=== PATIENT | female | born 1975 | race Caucasian/White ===

== ENCOUNTER 2017-05-24 10:43 | Emergency (ER) | payer SELFPAY ==
--- NOTE | 2017-05-24 11:13 | CPEKG ---
Heart Rate: 71 RR Interval: 845 P-R Interval: 188 QRSD Interval: 74 QT Interval: 364 QTC Interval: 396 P [place]: 45 QRS [place]: 4 T Wave [place]: 24 EKG Severity - NORMAL ECG - EKG Impression: SINUS RHYTHM Electronically Signed By: Stef Vasquez 24-May-2017 11:48:47
[2017-05-24] MEDS ORDERED: LIDOCAINE 2% VISCOUS 15 ML UDCUP PO ONE (11:18)
[2017-05-24] MEDS ORDERED: HYOSCYAMINE SULFATE 0.125 MG TAB PO ONE (11:18)
[2017-05-24] MEDS ORDERED: MAG HYDROX/AL HYDROX/SIMETH 30 ML UDCUP PO ONE (11:18)
--- NOTE | 2017-05-24 11:21 | EDPHY ---
H & P Stated Complaint: Tightness in midsternal chest since yesterday, no assoc sxs Time Seen by Provider: 05/24/17 11:09 HPI/ROS: CHIEF COMPLAINT: Epigastric and midsternal chest pain since last evening HISTORY OF PRESENT ILLNESS: 42-year-old female generally healthy, nonsmoker, no cocaine use, no exogenous estrogen use, complaining of epigastric an esophageal discomfort since last evening with dyspnea. Nonpleuritic. No radiation of symptoms. No nausea or vomiting.. PRIMARY CARE PROVIDER: [facility] REVIEW OF SYSTEMS: A ten point review of systems was performed and is negative with the exception of the items mentioned in the HPI PAST MEDICAL & SURGICAL HISTORY: No pertinent medical or surgical history SOCIAL HISTORY: Positive marijuana use. Negative cocaine. Negative cigarette use. FAMILY HISTORY: no family history of premature coronary artery disease or coagulopathy PHYSICAL EXAM (Prior to examination, patient consented to physical exam, hands were washed and my usual and customary physical exam procedures followed) 1) GENERAL: Well-developed, well-nourished, alert and oriented. Appears to be in no acute distress. 2) HEAD: Normocephalic, atraumatic 3) HEENT: Pupils equal, round, reactive to light bilaterally. Sclera anicteric. 4) NECK: Full range of motion, no meningeal signs. No carotid bruit 5) LUNGS: Clear auscultation bilaterally, no wheezes, no rhonchi, no retractions. 6) HEART: Regular rate and rhythm, no murmur, no heave, no gallop. 7) ABDOMEN: No guarding, no rebound, no focal tenderness, negative McBurney's, negative Horne's, negative Rovsing's, negative peritoneal sign, 8) MUSCULOSKELETAL: Moving all extremities, no focal areas of tenderness, no obvious trauma. No peripheral edema or discoloration.negative Homans no palpable cord 9) BACK: No CVA tenderness, no midline vertebral tenderness, no fluctuance, no step-off, no obvious trauma, no visual or palpable abnormality. 10) SKIN: No rash, no petechiae. 11) Psychiatric: Patient is oriented X 3, there is no agitation. DIFFERENTIAL DIAGNOSIS: In no particular order, including but not limited to myocardial ischemia, esophagitis, pulmonary embolus, chest wall pain, pleural inflammation and pulmonary infectious causes. - Personal History LMP (Females 10-55): 8-14 Days Ago Current Tetanus Diphtheria and Acellular Pertussis (TDAP): Yes - Medical/Surgical History Other PMH: anxiety. chronic pain R shoulder. herniated disc in neck - Social History Smoking Status: Never smoked Constitutional: Initial Vital Signs Temperature (C) 36.8 C 05/24/17 10:45 Heart Rate 82 05/24/17 10:45 Respiratory Rate 18 05/24/17 10:45 Blood Pressure 142/102 H 05/24/17 10:45 O2 Sat (%) 97 05/24/17 10:45 O2 Delivery Mode Room Air Allergies/Adverse Reactions: Penicillins Allergy (Unknown, Verified 05/24/17 10:47) as child Home Medications: Medication Instructions Recorded Pantoprazole Sodium [Protonix 40mg 40 mg PO DAILY #30 tab 05/24/17 (RX)] Ranitidine HCl [Zantac] 150 mg PO BID #30 tablet 05/24/17 clonAZEPAM [Klonopin] 1 mg PO 05/24/17 oxyCODONE HCL/ACETAMINOPHEN 1 each PO 05/24/17 [Oxycodone-Acetaminophen 5-325] Medical Decision Making - Diagnostics Imaging Results: Images reviewed myself ED Course/Re-evaluation: Care of patient under supervision of secondary supervising physician Dr Vasquez. Patient was re-evaluated with serial examinations. Most recently examination at 12:30 p.m., discussed her negative D-dimer which I think adequately excludes pulmonary embolus in this patient whom I think is a low to medium risk. Doubt MD with a negative troponin and symptoms that started over 12 hr ago. Patient was given GI cocktail and re-evaluated, - Data Points Laboratory Results: Laboratory Results 05/24/17 11:20 05/24/17 11:20 Medications Given: Discontinued Medications Al Hydroxide/Mg Hydroxide (Maalox Susp) 30 ml PO ONCE ONE Stop: 05/24/17 11:19 Last Admin: 05/24/17 11:56 Dose: 30 ml Hyoscyamine Sulfate (Levsin, Hyomax-Sl) 0.25 mg PO ONCE ONE Stop: 05/24/17 11:19 Last Admin: 05/24/17 11:57 Dose: 0.25 mg Lidocaine (Lidocaine 2% Viscous) 15 ml PO ONCE ONE Stop: 05/24/17 11:19 Last Admin: 05/24/17 11:56 Dose: 15 ml Departure - Departure Disposition: Home, Routine, Self-Care Clinical Impression: Chest pain Condition: Good Instructions: Ranitidine (By mouth), Pantoprazole (By mouth), Chest Pain (ED) Additional Instructions: Seek medical attention if you develop new or worsening chest pain, if you develop new or worsening shortness of breath, or any other symptoms that concern you. Referrals: [facility] [Provider Group] - 1 day without fail Prescriptions: Pantoprazole Sodium [Protonix 40mg (RX)] 40 mg PO DAILY #30 tab Ranitidine HCl [Zantac] 150 mg PO BID #30 tablet
[2017-05-24 11:47] LABS: PLATELET COUNT 297 10^3/uL (150-400)
[2017-05-24 12:52] VITALS: BP 122/88; PULSE 67; RESP 16; TEMP 99; O2SAT 96
== END 2017-05-24 12:52 | disposition home or self-care (01) ==
DX: R07.9 Chest pain, unspecified (principal)